=== PATIENT | female | born 1985 | race Caucasian/White ===

== ENCOUNTER 2020-11-11 17:05 | Emergency (ER) | payer OTHER ==
[2020-11-11 17:33] VITALS: BP 121/69; PULSE 87; TEMP 99; BMI 29.2
== END 2020-11-11 17:40 | disposition home or self-care (01) ==
LOC: FER 17:05
DX: Z77.21 Contact with and (suspected) exposure to potentially hazardous body fluids (principal)
CPT/HCPCS: 99281-25

== ENCOUNTER 2021-10-17 11:14 | Emergency (ER) | payer OTHER ==
[2021-10-17 11:23] VITALS: BP 119/80; PULSE 99; TEMP 99.3; BMI 30.2
== END 2021-10-17 11:56 | disposition home or self-care (01) ==
LOC: FER 11:14
DX: S50.871A Other superficial bite of right forearm, initial encounter (principal); Y04.1XXA Assault by human bite, initial encounter; Y35.891A Legal intervention involving other specified means, law enforcement official injured, initial encounter
CPT/HCPCS: 99281-25

== ENCOUNTER 2021-10-18 21:30 | Emergency (ER) | payer OTHER ==
[2021-10-18 22:27] VITALS: BP 106/72; PULSE 90; TEMP 98; BMI 30.2
== END 2021-10-18 22:44 | disposition home or self-care (01) ==
LOC: FER 21:30
DX: S80.01XA Contusion of right knee, initial encounter (principal); S80.02XA Contusion of left knee, initial encounter; S63.501A Unspecified sprain of right wrist, initial encounter; Y35.811A Legal intervention involving manhandling, law enforcement official injured, initial encounter
CPT/HCPCS: 99281-25

== ENCOUNTER 2021-12-01 10:55 | Emergency (ER) | payer OTHER ==
[2021-12-01 11:02] VITALS: BP 121/81; PULSE 75; RESP 20; TEMP 98.3; BMI 29.8
[2021-12-01] MEDS ORDERED: LIDOCAINE 5% TOPICAL PATCH TP ONE ×2 (11:20→11:39)
[2021-12-01] MEDS ORDERED: IBUPROFEN 600 MG TABLET (FP) PO ONE ×2 (11:20→11:25)
[2021-12-01] MEDS ORDERED: ONDANSETRON *ODT* 4 MG TABLET SL ONE (11:20)
[2021-12-01] MEDS ORDERED: ONDANSETRON *ODT* 4 MG TABLET ONE (11:25)
[2021-12-01] MEDS ORDERED: LIDOCAINE 5% TOPICAL PATCH ONE ×2 (11:25→11:40)
[2021-12-01] MEDS ORDERED: LIDOCAINE PATCH REMOVAL MC SCH ×2 (22:00)
== END 2021-12-01 12:52 | disposition home or self-care (01) ==
LOC: FER 10:55
DX: S13.4XXA Sprain of ligaments of cervical spine, initial encounter (principal); V49.40XA Driver injured in collision with unspecified motor vehicles in traffic accident, initial encounter
CPT/HCPCS: 73030-TC-RT-FY; 73110-TC-RT-FY; 99284-25; Q0162

== ENCOUNTER 2023-04-19 17:40 | Emergency (ER) | payer OTHER ==
[2023-04-19] MEDS ORDERED: IBUPROFEN 600 MG TABLET (FP) PO ONE ×2 (17:47→17:51)
[2023-04-19 17:56] VITALS: BP 107/81; PULSE 84; RESP 18; TEMP 98.5; BMI 29.6
== END 2023-04-19 19:33 | disposition home or self-care (01) ==
LOC: FER 17:40
DX: M79.645 Pain in left finger(s) (principal); R22.32 Localized swelling, mass and lump, left upper limb; S69.92XA Unspecified injury of left wrist, hand and finger(s), initial encounter; X50.9XXA Other and unspecified overexertion or strenuous movements or postures, initial encounter; Y99.0 Civilian activity done for income or pay
CPT/HCPCS: 73140-TC-LT-FY; 99283-25